=== PATIENT | female | born 1945 | race Caucasian/White ===

== ENCOUNTER 2016-08-08 15:24 | Emergency (ER) | payer MEDICARE, OTHER ==
[~2016-08-08] VITALS: Ht 160 cm; Wt 81.6 kg
[~2016-08-08 15:24] MED LIST: ASPIRIN 81MG TA81 MG PO; ATORVASTATIN CA80 MG PO; CARVEDILOL6.25 M1 PO; CLOPIDOGREL75 M2 PO; DILTIAZEM ER 1120 MG PO; FUROSEMIDE 40MG40 M1 PO; HYDROCHLOROTHIA25 M1 PO; HYDROCODONE-APA1 TA1 PO; ISOSORBIDE MONO30 MG PO; METFORMIN HCL850 MG PO; NAPROXEN SODIU500 MG PO; NORFLEX100 MG PO; NOVOLIN 70/30 710 ML SC; POTASSIUM CHLO10 MEQ PO; PRINIVIL40 MG PO; SIMVASTATIN20 MG PO
--- NOTE | 2016-08-08 15:29 | Emergency Room Report ---
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 Clinical Suspician of Infection? Mental Status: Sepsis Risk: Have you (or family members/close friends) recently traveled outside the [place]? If Yes, where/when: Have you had exposure to infectious disease within the past month? TB? Other? Specify: Source patient, RN notes reviewed Exam Limitations no limitations Comment bad pain in Left upper quadrant that radiates to the epigastrium and into her back on the left side. No vomiting or diarrhea and no chest pain but she had a stent placed about a year or so ago. She also had and EGD but never got the results. Cardiac Chest Pain Chest pain indicative of cardiac No ALLERGIES Coded Allergies: No Known Allergies (06/22/16) Home Medications Active Scripts HYDROCODONE 5MG/APAP 325MG (Hydrocodon-Acetaminophen 5-325) 1 TAB PO Q4HP PRN pain #6 TAB Prov: 07/03/14 Reported Medications Carvedilol 6.25 MG PO BID #60 CLOPIDOGREL BISULFATE (Clopidogrel) 75 MG PO DAILY #30 Atorvastatin Calcium 80 MG PO DAILY #30 Isosorbide Mononitrate (Isosorbide Mononitrate ER) 30 MG PO DAILY #30 Potassium Chloride (POTASSIUM CHLORIDE 10mEq CAP) 10 MEQ PO DAILY #30 Lisinopril (PRINIVIL (GEQ) 40MG) 40 MG PO DAILY METFORMIN HCL (Metformin HCl) 850 MG PO BID INSULIN NPH HUM/REG INSULIN HM (Novolin 70-30 100 Unit/Ml Vial) 40 UNITS SC BID ASPIRIN (Aspirin) 81 MG PO DAILY Furosemide 40 MG PO DAILY #90 TAB History Medical History General CAD? No Angina: No VT: Yes Hypertension? Yes Hyperlipidemia? Yes CHF? No DVT? No PE? No COPD? No Asthma? No Anemia? No GERD? Yes Gastric ulcers? No GI Bleed? No Hernia? No Thyroid Problems? No Hypothyroidism? No CVA? No Seizures? No Diabetes? Yes Insulin Dependent: Yes Insulin Pump: No Home FSBS? Yes Renal Insuffiency? No End Stage Renal Disease? No UTI? No Stones? No BPH? No GB Disease: No Nephritic Syndrome? No Asplenia? No Hepatitis? No Sickle Cell Disease? No Arthritis? No Migraines? No Cataracts? No Glaucoma? No MRSA? No HIV? No TB? No Anxiety? Yes Depression? Yes Cancer? No More? No Immunization Hx DT/Tetanus Unknown Flu 2016-FSN Pneumonia Received In Past Surgical Hx Previous Surgery?Y LFT KNEE GALLBLADDER Back Surgery Family History Family Hx Diabetes Yes CAD Yes Hypertension Yes Hyperlipidemia Yes Cancer No TB No Social History Alcohol Alcohol: No Review of Systems All Other Systems Reviewed and Negative Constitutional see HPI Cardiovascular see HPI Gastrointestinal see HPI Musculoskeletal see HPI Physical Exam Vital Signs Vital Signs Date Time Temp Pulse Resp B/P Pulse O2 O2 Flow FiO2 Ox Delivery Rate 08/08 1658 75 22 126/53 97 08/08 1602 72 22 142/77 96 08/08 1530 98.8 74 22 150/78 96 General Appearance normal appearance, WD/WN, mild distress Respiratory Status No: respiratory distress. Lung Sounds bilateral: normal breath sounds. 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 No Results/Orders Laboratory Tests 08/08/16 1535: Sodium 139, Potassium 3.2 L, Chloride 98, Carbon Dioxide 31, BUN 8, Creatinine 0.9, Estimated Creat Clear 74, Estimated GFR (MDRD) 62, Glucose 177 H, Calcium 8.9, Total Bilirubin 2.2 H, AST 25, ALT 23, Alkaline Phosphatase 73, Creatine Kinase 59, CK-MB (CK-2) Rel Index 0.8, CK and CKMB Interp 0.5, Troponin I < 0.02 , Total Protein 7.6, Albumin 3.4, Globulin 4.2 H, Albumin/Globulin Ratio 0.8 L , Amylase 44, Lipase 71 L, WBC 4.8, RBC 3.84 L, Hgb 11.2 L, Hct 35.0 L, MCV 91.2, RDW 15.1, Plt Count 130 L, MPV 6.7 L, Gran % 69.6, Gran # 3.3, Lymphocytes % 23.3, Monocytes % 4.6, Eosinophils % 2.3, Basophils % 0.2, Lymphocytes # 1.1, Monocytes # 0.2, Eosinophils # 0.1, Basophils # 0.0, PUBS MCHC 32.1, MCH 29.2 Current Medication Orders Sig/Rigo Start time Last Medication Dose Route Stop Time Status Admin Sodium Chloride 1,000 ML .STK-MED ONE 08/08 1731 DC IV Pantoprazole Sodium 0 .STK-MED ONE 08/08 1716 DC IV Sodium Chloride 1,000 ML .STK-MED ONE 08/08 1716 DC IV Ondansetron HCl 0 .STK-MED ONE 08/08 1715 DC .ROUTE Ondansetron HCl 4 MG ONCE ONE 08/08 1615 DC 08/08 IV 08/08 161 1726 Pantoprazole Sodium 40 MG ONCE ONE 08/08 1615 DC 08/08 IV 08/08 161 1726 Sodium Chloride 10 ML PRN PRN 08/08 1615 AC IV 08/09 1613 Sodium Chloride 1,000 ML .Q4H 08/08 1615 AC 08/08 IV 08/08 2013 1733 Sodium Chloride 10 ML PRN PRN 08/08 1615 AC IV 08/09 1613 Sodium Chloride 10 ML ONCE ONE 08/08 1615 DC 08/08 IV 08/08 1616 1726 Orders Procedure Date/time Status DIET-NOTHING BY MOUTH 08/08 D Active ELECTROCARDIOGRAM REQUEST 08/[address] ABD/PELVIS REQ 08/08 161 Complete IV SALINE LOCK 08/08 1615 Active LIPASE 08/08 1551 Complete CBC WITH AUTO DIFF 08/08 1551 Complete CARDIAC ENZYMES 08/08 1551 Complete CHEM 12 PROFILE 08/08 1551 Complete AMYLASE 08/08 1551 Complete 12 LEAD EKG-BESSON (INITIAL) 08/08 UNK Active Departure Departure Time of Disposition 1749 Disposition DC Home or Self Care(routine) Clinical Impression Primary Impression: Abdominal pain Qualifiers: Abdominal location: left upper quadrant Qualified Code: R10.12 - Left upper quadrant pain Condition STABLE Referrals Mark DECKER,Ravi Morris Patient Instructions Acute Abdominal Pain, DI for Abdominal Pain-Adult Additional Instructions Pt advised to take meds at home and return to the ED or followup with PCP if a rash develops as it could be shingles. Discharge Counseling Counseled pt/family regarding diagnosis, test results, home care, follow up needs ED Critical Care Critical Care No If Critical Care minutes are documented, the time involved in the performance of seperately reportable procedures was not counted toward critical care time documented. I directly delivered medical care to this critically ill and/or injured patient. Timely evaluation and treatment was necessary to address the significant organ system(s) dysfunction present in this patient. at [id number]
[2016-08-08 16:00] LABS: HEMOGLOBIN 11.2 g/dL (12.2-16.2); LYMPH # 1.1 K/mm3 (0.7-4.5); LYMPH % 23.3 % (10-50.0)
[2016-08-08 16:25] LABS: BUN 8 mg/dL (7-18)
[2016-08-08 16:33] LABS: GFR (ESTIMATED) 62 ML/MIN (59-)
--- NOTE | 2016-08-08 17:29 | RADIOLOGY REPORT PS360 ---
CT ABD PELVIS W/O CONTRAST COMPARISON: None HISTORY: Abdominal pain and epigastric pain, some nausea TECHNIQUE: Multiaxial scans obtained from the hemidiaphragms the pelvic floor and were performed without IV or oral contrast. Sagittal coronal reformats were evaluated as well. FINDINGS: Scans through the lower chest show moderate generalized cardio megaly. The lower lung schmidt are clear and is no pleural fluid. The stomach is partially filled with ingested food particles but appears normal. The liver and spleen are grossly normal. The pancreas appears normal with no inflammatory changes noted. There has been previous cholecystectomy. The adrenal glands are normal. The kidneys are lower limits of normal in size but there is no obstructive uropathy. There is a tiny 1 mm or less nonobstructing calculus midpole left kidney. There is an umbilical hernia measuring 2.2 cm at the mouth containing fat only. Small bowel appears normal. There has been a previous appendectomy. There is minimal scattered stool in the ascending and transverse colon. Is minimal diverticulosis of the sigmoid colon with is no evidence of diverticulitis. The uterus is normal in size and in the midline. Urinary bladder is partially decompressed but otherwise appears normal. There is no free fluid in the pelvis. There is multilevel degenerative changes of the lower thoracic and lumbar spine with hypertrophic facet changes at L4-5 and L5-S1 levels.. IMPRESSION: 1. Generalized cardiomegaly. 2. Small umbilical hernia containing fat only. 3. Mild diffuse diverticulosis of the sigmoid colon without evidence of diverticulitis
[2016-08-08 19:22] VITALS: BP 132/59
== END 2016-08-08 19:25 | disposition home or self-care (01) ==
LOC: ER 15:24
PROVIDERS: General Practice
DX: R10.12 Left upper quadrant pain (principal); E11.9 Type 2 diabetes mellitus without complications; Z79.4 Long term (current) use of insulin; I10 Essential (primary) hypertension; E78.5 Hyperlipidemia, unspecified
CPT/HCPCS: J2405

== ENCOUNTER → 2017-04-07 | Outpatient (CLI) | payer MEDICARE, OTHER ==
[2017-04-07 20:08] LABS: AMPHETAMINES/METAMPHETAMINES NEGATIVE ng/mL (<1000)
== END ==
LOC: LAB 17:06
PROVIDERS: Emergency Medicine
DX: Z79.899 Other long term (current) drug therapy (principal)